=== PATIENT | female | born 1995 | race African-American/Black ===

== ENCOUNTER 2017-07-23 13:45 | Emergency (ER) | payer SELFPAY ==
[2017-07-23 14:27] LABS: Bilirubin Negative (Negative); Blood, Urine Large (Negative); Clarity Cloudy (Clear); Glucose, Urine (Dipstick) Negative (Negative); Leukocyte Small (Negative); Nitrite Negative (Negative); Protein, Urine (Dipstick) > or equal to 300 mg/dL (Neg-Trace); Specific Gravity, Urine 1.025 (1.005-1.030); pH, Urine 7.5 (5.0-9.0)
[2017-07-23 14:29] LABS: Pregnancy Test - Urine (BHCG) Negative (NEGATIVE); Pregu Control Background? CLEAR/WHITE (CLR/WHITE); Pregu Control Bar Appear? YES (CONTROL BAR); Specific Gravity 1.025 (1.002-1.036)
[2017-07-23 14:35] LABS: Bacteria/HPF 2+ HPF (None Seen); RBC/HPF GREATER THAN 50-TNTC HPF (0-3); WBC/HPF 21-50 HPF (0-3)
== END 2017-07-23 14:53 | disposition home or self-care (01) ==
LOC: NAV ERS 13:45
DX: N39.0 Urinary tract infection, site not specified (principal)
CPT/HCPCS: 81003; 81015; 81025; 99283

== ENCOUNTER 2017-12-10 15:29 | Emergency (ER) | payer SELFPAY | END 2017-12-10 17:16 | disposition home or self-care (01) | LOC: NAV ERS 15:29 | DX: M54.12 Radiculopathy, cervical region (principal) | CPT/HCPCS: 99283 ==

== ENCOUNTER 2018-02-06 21:02 | Emergency (ER) | payer SELFPAY ==
[2018-02-06] MEDS ORDERED: Ketorolac Tromethamine 60 MG/2 ML VIAL ONE (21:31)
--- NOTE | 2018-02-06 21:46 | RAD ---
LEFT KNEE FOUR VIEWS: History: Knee pain. FINDINGS: Joint spaces appear normal. No fracture. No joint effusion. IMPRESSION: No acute abnormality. POS: [facility]
== END 2018-02-06 22:10 | disposition home or self-care (01) ==
LOC: NAV ERS 21:02
DX: S83.92XA Sprain of unspecified site of left knee, initial encounter (principal); W09.8XXA Fall on or from other playground equipment, initial encounter; Y93.44 Activity, trampolining
CPT/HCPCS: 96372; J1885

== ENCOUNTER 2018-04-06 18:50 | Emergency (ER) | payer SELFPAY ==
[2018-04-06] MEDS ORDERED: Ibuprofen 800 MG TAB ONE (19:24)
--- NOTE | 2018-04-06 19:46 | RAD ---
THREE VIEWS OF THE LEFT SHOULDER: 04/06/18 COMPARISON: None. HISTORY: Left shoulder hurting since [place] - pain. FINDINGS: Three views of the left shoulder shows no evidence of acute fracture or dislocation. No degenerative changes are seen. The visualized left thorax is unremarkable. IMPRESSION: Unremarkable exam. POS: [facility]
== END 2018-04-06 19:25 | disposition home or self-care (01) ==
LOC: NAV ERS 18:50
DX: M25.512 Pain in left shoulder (principal); F32.9 Major depressive disorder, single episode, unspecified; L93.0 Discoid lupus erythematosus

== ENCOUNTER 2023-07-04 18:38 | Emergency (ER) | payer MEDICAID, OTHER, SELFPAY ==
[2023-07-04] MEDS ORDERED: Ondansetron ODT 4 MG TAB ONE (18:59)
[2023-07-04] MEDS ORDERED: Acetaminophen 500 MG TAB ONE (18:59)
[2023-07-05 11:28] LABS: MONO NEGATIVE CONTROL ZONE White (Negative) (White); MONO POSITIVE CONTROL Pink Line (Positive) (PINK/RED); Mononucleosis NEGATIVE (NEGATIVE)
== END 2023-07-04 19:54 | disposition home or self-care (01) ==
LOC: NAV ERS 18:38
DX: R59.0 Localized enlarged lymph nodes (principal); R50.9 Fever, unspecified
CPT/HCPCS: 36415; 86308; 87081; 87430; 99283; Q0162

== ENCOUNTER 2023-09-12 11:59 | Emergency (ER) | payer SELFPAY ==
[2023-09-12] MEDS ORDERED: Ibuprofen 800 MG TAB ONE (12:24)
== END 2023-09-12 13:25 | disposition home or self-care (01) ==
LOC: NAV ERS 11:59
DX: B34.9 Viral infection, unspecified (principal)
CPT/HCPCS: 87081; 87430; 87804; 99283

== ENCOUNTER 2024-06-12 17:48 | Emergency (ER) | payer SELFPAY ==
[2024-06-12] MEDS ORDERED: Ketorolac Tromethamine 60 MG/2 ML VIAL ONE (18:30)
[2024-06-12] MEDS ORDERED: Amoxicillin/Potassium Clav 875 MG TAB ONE (18:30)
== END 2024-06-12 18:45 | disposition home or self-care (01) ==
LOC: NAV ERS 17:48
DX: K08.89 Other specified disorders of teeth and supporting structures (principal)
CPT/HCPCS: 96372; 99283; J1885